=== PATIENT | male | born 1970 | race Caucasian/White ===

== ENCOUNTER 2019-07-25 19:51 | Emergency (ER) | payer OTHER ==
[~2019-07-25] VITALS: Ht 170.2 cm; Wt 63.6 kg
--- NOTE | 2019-07-25 20:12 | PHYS DOC ---
Past Medical History Past Medical History: No Pertinent History Past Surgical History: No Surgical History Alcohol Use: Occasionally Drug Use: Marijuana General Adult EDM: Chief Complaint: ABDOMINAL PAIN HPI: HPI: Patient is a 48 year old male who presents with complaint of mid to lower abdominal pain that started earlier today. When he was at its worst, pain was at a 10 out of 10 but currently is a 3 out of 10. He states he did have some nausea but no vomiting. He does report to having had a good appetite today. He states that initially the pain was at the level of the umbilicus, extending all the way across the abdomen but has since migrated to the right lower quadrant.[] Review of Systems: Review of Systems: Constitutional: Denies fever or chills. [] Respiratory: Denies cough or shortness of breath. [] Cardiovascular: Denies chest pain or edema. [] GI: Complains of abdominal pain without vomiting or diarrhea. [] : Denies dysuria. Reports hematuria. [] Neurologic: Denies headache, focal weakness or sensory changes. [] A full 10 point review of systems has been reviewed and is otherwise negative. Heart Score: Risk Factors: Risk Factors: DM, Current or recent (<one month) smoker, HTN, HLP, family history of CAD, obesity. Risk Scores: Score 0 - 3: 2.5% MACE over next 6 weeks - Discharge Home Score 4 - 6: 20.3% MACE over next 6 weeks - Admit for Clinical Observation Score 7 - 10: 72.7% MACE over next 6 weeks - Early Invasive Strategies Current Medications: Current Medications Medications (Trade) Dose Ordered Sig/[facility] Start Time Stop Time Status Last Admin Dose Admin Sodium Chloride 1,000 ml @ 1,000 mls/hr Q1H 07/25/19 20:04 07/25/19 21:03 UNV Allergies: Allergies: Allergies Coded Allergies Type Severity Reaction Last Updated Verified No Known Drug Allergies 05/13/13 No Physical Exam: PE: Constitutional: Well developed, well nourished, no acute distress, non-toxic appearance. [] HENT: Normocephalic, atraumatic, bilateral external ears normal, oropharynx moist, no oral exudates, nose normal. [] Eyes: PERRLA, EOMI, conjunctiva normal, no discharge. [] Neck: Normal range of motion, no tenderness, supple. [] Cardiovascular: Regular rate and rhythm[] Lungs & Thorax: Bilateral breath sounds clear to auscultation [] Abdomen: Bowel sounds normal, soft, with mild right lower abdominal tenderness. [] Skin: Warm, dry, no erythema, no rash. [] Extremities: No tenderness, no cyanosis, no clubbing, ROM intact, no edema. [] Neurologic: Alert and oriented X 3, no focal deficits noted. [] EKG: EKG: [] Radiology/Procedures: Radiology/Procedures: [] Impression: PROCEDURE: CT ABD PELV W/ IV CONTRST ONLY EXAM: CT Abdomen and Pelvis with IV contrast CLINICAL HISTORY: Right lower quadrant abdominal pain. COMPARISON: none TECHNIQUE: Helical CT of the abdomen and pelvis was performed following the administration of IV contrast. Axial, coronal and sagittal reformatted images were generated. ---PQRS compliance statement - One or more of the following individualized dose reduction techniques were utilized for this study: 1. Automated exposure control 2. Adjustment of the mA and/or kV according to patient size 3. Use of iterative reconstruction technique--- FINDINGS: Lower chest: Lung bases are clear. Trace hiatal hernia. Abdomen and pelvis: Liver and biliary system: No focal liver lesion. Gallbladder is normal. No biliary ductal dilatation. Spleen: Unremarkable Pancreas: Unremarkable Adrenal glands: Unremarkable Kidneys: Symmetric nephrograms. No focal renal lesion. No hydronephrosis. No hydroureter. Lymph nodes/retroperitoneum: No abdominal or pelvic lymphadenopathy. Vessels: Aorta is normal in caliber. Bowel/Peritoneal cavity: Moderate colonic stool content is seen. Segment of decompressed sigmoid colon in the region of a few colonic diverticula. No evidence for acute diverticulitis. Appendix is normal. No abdominal or pelvic ascites. Abdominal wall: Unremarkable. Bladder: Bladder is unremarkable. Bones: No aggressive osseous lesion is seen. . IMPRESSION: 1. Appendix is normal. 2. Moderate colonic stool and fluid content is seen. Fluid components may be seen with diarrheal state. 3. Colonic diverticula are seen without evidence for acute diverticulitis. 4. A segment of sigmoid colon is decompressed and mildly irregular in appearance, this can be correlated with colonoscopy to exclude underlying mass. Electronically signed by: Dharmesh Guido MD (07/25/2019 9:38 PM) [facility] DICTATED and SIGNED BY: DHARMESH GUIDO MD DATE: 07/25/192137 Course & Med Decision Making: Course & Med Decision Making Pertinent Labs and Imaging studies reviewed. (See chart for details) [] Dragon Disclaimer: Onel Disclaimer: This electronic medical record was generated, in whole or in part, using a voice recognition dictation system. Departure Departure Impression: Primary Impression: Abdominal pain Qualified Codes: R10.30 - Lower abdominal pain, unspecified Disposition: HOME, SELF-CARE Condition: STABLE Referrals: ELÍAS MASTERSON MD (PCP) Patient Instructions: Abdominal Pain Additional Instructions: Follow-up with your primary care provider in the next few days. There were some abnormal findings on the CAT scan for which the radiologist has recommended colonoscopy to further evaluate. Scripts Ondansetron (ONDANSETRON ODT) 4 Mg Tab.rapdis 1 TAB PO PRN Q6-8HRS PRN for NAUSEA, #15 TAB Prov: KYRA GIBBONS Jr. DO 07/25/19 Dicyclomine Hcl (DICYCLOMINE HCL) 20 Mg Tablet 1 TAB PO TID PRN for abdominal discomfort, #30 TAB Prov: KYRA GIBBONS Jr. DO 07/25/19 KYRA GIBBONS Jr. DO July 25, 2019 20:12
[2019-07-25] MEDS: IV NORMAL SALINE 1000ML BAG 1,000 ML IV SCH (20:15)
[2019-07-25 20:19] LABS: BASO # 0.1 x10^3/uL (0.0-0.2); BASO % 1 % (0-3); EOS # 0.2 x10^3/uL (0.0-0.7); EOS % 2 % (0-3); LYMPH # 2.3 x10^3/uL (1.0-4.8); LYMPH % 27 % (24-48); MEAN CORPUSCULAR HEMOGLOBIN 31 pg (25-35); MEAN CORPUSCULAR HGB CONC 35 g/dL (31-37); MEAN CORPUSCULAR VOLUME 89 fL (79-100); MONO # 1.1 x10^3/uL (0.0-1.1); MONO % 13 % (0-9); NEUT # 4.9 x10^3/uL (1.8-7.7); NEUT % 57 % (31-73); PLATELET COUNT 207 x10^3/uL (140-400); RED BLOOD COUNT 5.53 x10^6/uL (4.30-5.70); RED CELL DISTRIBUTION WIDTH 13.7 % (11.5-14.5); WHITE BLOOD COUNT 8.5 x10^3/uL (4.0-11.0)
[2019-07-25 20:26] LABS: CALCIUM 8.9 mg/dL (8.5-10.1); CREATININE 0.8 mg/dL (0.7-1.3); GFR 102.7; POTASSIUM 3.4 mmol/L (3.5-5.1)
[2019-07-25 20:30] LABS: BILIRUBIN,URINE NEGATIVE (NEG); CLARITY,URINE CLEAR; COLOR,URINE YELLOW; NITRITE,URINE NEGATIVE (NEG); PROTEIN,URINE NEGATIVE (NEG-TRACE); UROBILINOGEN,URINE 0.2 mg/dL (0.2 mg/dL)
[2019-07-25 20:32] LABS: ALBUMIN 3.7 g/dL (3.4-5.0); ALBUMIN/GLOBULIN RATIO 1.1 (1.0-1.7); TOTAL BILIRUBIN 0.5 mg/dL (0.2-1.0); TOTAL PROTEIN 7.1 g/dL (6.4-8.2)
[2019-07-25 20:34] LABS: BACTERIA,URINE 0 /HPF (0-FEW); RBC,URINE 0 /HPF (0-2); SQUAMOUS EPITHELIAL CELL,UR OCC /LPF; WBC,URINE OCC /HPF (0-4)
[2019-07-25 20:36] LABS: AMPHETAMINE/METHAMPHETAMINE NEG (NEG); BARBITURATES NEG (NEG); BENZODIAZEPINES NEG (NEG); CANNABINOIDS POS (NEG); COCAINE NEG (NEG); METHADONE NEG (NEG); OPIATES NEG (NEG); PHENCYCLIDINE NEG (NEG)
[2019-07-25] MEDS: IOHEXOL 300 MG/ML 100ML VIAL. IV ONE (21:12)
[2019-07-25] MEDS ORDERED: CONTRAST GIVEN. MC PRN (21:30)
--- NOTE | 2019-07-25 21:41 | RAD ---
EXAM: CT Abdomen and Pelvis with IV contrast CLINICAL HISTORY: Right lower quadrant abdominal pain. COMPARISON: none TECHNIQUE: Helical CT of the abdomen and pelvis was performed following the administration of IV contrast. Axial, coronal and sagittal reformatted images were generated. ---PQRS compliance statement - One or more of the following individualized dose reduction techniques were utilized for this study: 1. Automated exposure control 2. Adjustment of the mA and/or kV according to patient size 3. Use of iterative reconstruction technique--- FINDINGS: Lower chest: Lung bases are clear. Trace hiatal hernia. Abdomen and pelvis: Liver and biliary system: No focal liver lesion. Gallbladder is normal. No biliary ductal dilatation. Spleen: Unremarkable Pancreas: Unremarkable Adrenal glands: Unremarkable Kidneys: Symmetric nephrograms. No focal renal lesion. No hydronephrosis. No hydroureter. Lymph nodes/retroperitoneum: No abdominal or pelvic lymphadenopathy. Vessels: Aorta is normal in caliber. Bowel/Peritoneal cavity: Moderate colonic stool content is seen. Segment of decompressed sigmoid colon in the region of a few colonic diverticula. No evidence for acute diverticulitis. Appendix is normal. No abdominal or pelvic ascites. Abdominal wall: Unremarkable. Bladder: Bladder is unremarkable. Bones: No aggressive osseous lesion is seen. . IMPRESSION: 1. Appendix is normal. 2. Moderate colonic stool and fluid content is seen. Fluid components may be seen with diarrheal state. 3. Colonic diverticula are seen without evidence for acute diverticulitis. 4. A segment of sigmoid colon is decompressed and mildly irregular in appearance, this can be correlated with colonoscopy to exclude underlying mass. Electronically signed by: Dharmesh Guido MD (07/25/2019 9:38 PM) [place]
[2019-07-25] MEDS ORDERED: DICY20TA3 PO (21:55)
[2019-07-25] MEDS ORDERED: ONDA4TAB12 PO (21:55)
[2019-07-25 22:13] VITALS: BP 180/91
[2019-07-25] MEDS: DICYCLOMINE 20 MG/2 ML VIAL. IM ONE (22:22)
[2019-07-25] MEDS: fentaNYL PF VIAL 100 MCG/2 ML VIAL IVP ONE (22:22)
[2019-07-25] MEDS: DICYCLOMINE HCL 10 MG CAPSULE PO ONE (22:26)
[2019-07-25] MEDS: HYDROcodone/APAP 7.5/325MG 1 TAB TABLET PO ONE (22:27)
== END 2019-07-25 22:29 | disposition home or self-care (01) ==
LOC: ER 19:51
DX: R10.31 Right lower quadrant pain (principal); R11.0 Nausea; R31.9 Hematuria, unspecified
CPT/HCPCS: 36415; 74177; 80053; 80307; 81001; 83690; 85025; 99285; J7030; Q9967

== ENCOUNTER → 2019-08-04 | Outpatient (CLI) | payer OTHER ==
[2019-07-25 22:13] VITALS: BP 180/91
[~2019-08-04] MED LIST: DICY20TA3 PO; IRBE300T23 PO; ONDA4TAB12 PO
== END | disposition home or self-care (01) ==
LOC: LAB 14:04
PROVIDERS: ATTEND Internal Medicine Gastroenterology
DX: R93.3 Abnormal findings on diagnostic imaging of other parts of digestive tract (principal); Z20.828 Contact with and (suspected) exposure to other viral communicable diseases
CPT/HCPCS: 36415; 87635

== ENCOUNTER → 2019-08-08 | Day surgery (SDC) | payer OTHER ==
[~2019-08-08] MED LIST changes: +IV RINGERS,LACTATED 1000ML 1,000 ML IV SCH; +LIDOCAINE 2% PF 5 ML VIAL. ONE; +PROPOFOL 10 MG/ML (20ML) VIAL. IV ONE
[2019-08-08 10:54] VITALS: BP 141/81
--- NOTE | 2019-08-11 16:06 | PATHOLOGY ---
[facility] Accession Number: [id number] . 01 Material submitted: . PART A: colon - ASCENDING COLON POLYP. Modifiers: ascending PART B: colon - SIGMOID COLITIS BIOPSY. Modifiers: sigmoid . 01 Clinical history: . Abdominal pain . 02 Diagnosis: A. Colon biopsies, ascending colon polyp: - Tubular adenoma. . B. Colon biopsies, sigmoid colon: - Focal mild edema and recent hemorrhage within lamina propria. See comment. ([facility] 08/11/2019) . [facility] 08/11/2019 1040 Local . 02 Comment: Sections of the ascending colon biopsy reveal a tubular adenoma showing no high-grade dysplasia or evidence of malignancy. Sections of the sigmoid colon biopsy reveal multiple segments of colonic mucosa showing focal mild edema and recent hemorrhage within the lamina propria. This is focally associated with shrunken colonic glands, suggesting the possibility of ischemic change. However, there is no epithelial necrosis or neutrophilic infiltration. There is no evidence of an acute infectious colitis, chronic destructive colitis, lymphocytic colitis, or collagenous colitis. . ([facility] 08/11/2019) . 02 Electronically signed: . Tao Kapoor MD, Pathologist NPI- [id number] . 01 Gross description: . A. The specimen is received in formalin labeled "Umaña, Pablo, ascending colon polyp" and consists of multiple fragments of pink-portillo tissue measuring 0.7 x 0.3 x 0.2 cm in aggregate which are entirely submitted in A1. . B. The specimen is received in formalin labeled "Umaña, Pablo, sigmoid colitis" and consists of multiple fragments of pink-portillo tissue measuring 1.2 x 0.4 x 0.2 cm in aggregate which are entirely submitted in B1. ([facility]; 08/08/2019) JFQ/JFQ 08/11/2019 [facility] Local . 02 Pathologist provided ICD-10: D12.2, R10.9 . 02 CPT . 160924, 710199 Specimen Comment: A courtesy copy of this report has been sent to [phone], [phone] Specimen Comment: [id number] Specimen Comment: Report sent to / DR MASTERSON Performed at: 01 [facility] [address], [place] [id number] MD Ruben Marshall MD Phone: [phone] Performed at: 02 [facility] [address], [place] [id number] MD Tao Kapoor MD Phone: [phone]
== END | disposition home or self-care (01) ==
LOC: ENDOS 08:53
PROVIDERS: ATTEND Internal Medicine Gastroenterology
DX: R19.7 Diarrhea, unspecified (principal); D12.2 Benign neoplasm of ascending colon; K29.50 Unspecified chronic gastritis without bleeding; K63.89 Other specified diseases of intestine; K64.0 First degree hemorrhoids; K51.50 Left sided colitis without complications; F15.90 Other stimulant use, unspecified, uncomplicated; F17.210 Nicotine dependence, cigarettes, uncomplicated; Z86.19 Personal history of other infectious and parasitic diseases; Z72.89 Other problems related to lifestyle
CPT/HCPCS: 43235; 45380; J2704; J3490